=== PATIENT | female | born 1945 | race Caucasian/White ===

== ENCOUNTER 2016-04-29 21:39 | Emergency (ER) | payer OTHER, MEDICARE ==
[~2016-04-29 21:39] MED LIST: LEVSIN-SL0.125 MG SL; MACROBID100 MG PO; ZOFRAN ODT4 M1 SL
--- NOTE | 2016-04-29 21:46 | ED GENERAL ADULT ---
History of Present Illness General Chief Complaint: Syncope and Near-Syncope Stated Complaint: BIBA SYNCOPE Source: patient, family Exam Limitations: poor historian Vital Signs & Intake/Output Vital Signs & Intake/Output Vital Signs Date Time Temp Pulse Resp B/P Pulse O2 O2 Flow FiO2 Ox Delivery Rate 04/30 0116 98.0 64 18 136/72 99 Room Air 04/29 2258 95 Room Air Room Air 04/29 2153 93.0 60 18 120/61 98 Room Air Allergies Coded Allergies: Quinolones (Mild, RASH 07/31/15) pentazocine (UNKNOWN 07/31/15) codeine (Intermediate, NAUSEA 07/31/15) Reconcile Medications Hyoscyamine Sulfate (Levsin-Sl) 0.125 MG TAB.SUBL 1-2 TAB SL Q4P PRN abd pain NITROFURANTOIN MONOHYD/M-CRYST (Macrobid 100 MG Capsule) 100 MG CAPSULE 1 CAP PO BID UTI Ondansetron (Zofran Odt) 4 MG TAB.RAPDIS 1 TAB SL TID nausea Triage Nurses Notes Reviewed? yes Onset: Abrupt Duration: hour(s): Timing: recent history HPI: 04/29/16 This is a mago 70-year-old female presents to the emergency department for syncope and vomiting. According to the patient's daughter she was in her usual state of health until earlier today when she cut her finger and afterwards she passed out. She was unconscious for about a minute. She says she's done this before; But this time she also vomited multiple times. She denies any significant abdominal pain. Now in the emergency department she is somewhat sleepy but denies headache or other complaints. The onset of the symptoms were abrupt, the duration was just this evening, the severity was significant as her symptoms required her to come to the emergency department for care. She was actually hungry earlier this evening and went to [facility] and had 2 hotdogs. Past History Travel History Traveled to [place] past 21 day No Medical History Any Pertinent Medical History? see below for history EENT: vertigo Cardiovascular: hypertension, hyperlipidemia Surgical History Surgical History: non-contributory Psychosocial History Who do you live with Friend Services at Home None What is your primary language Fijian Family History Hx Contributory? No Review of Systems Review of Systems Constitutional: Denies: fever. EENTM: Denies: visual changes. Respiratory: Denies: short of breath. Cardiovascular: Denies: chest pain. GI: Reports: vomiting. Denies: abdominal pain. Genitourinary: Reports: no symptoms. Musculoskeletal: Reports: no symptoms. Skin: Denies: rash. Neurological/Psychological: Denies: headache. Hematologic/Endocrine: Reports: no symptoms. Immunologic/Allergic: Reports: no symptoms. Physical Exam Physical Exam General Appearance: well developed/nourished, alert, awake, anxious, mild distress Head: atraumatic, normal appearance Eyes: Bilateral: normal appearance, PERRL, EOMI. Ears, Nose, Throat: normal pharynx, normal ENT inspection Neck: normal inspection, supple Respiratory: normal breath sounds, chest non-tender Cardiovascular: regular rate/rhythm Peripheral Pulses: 4+ radial (R), 4+ radial (L) Gastrointestinal: soft, non-tender Back: normal range of motion Extremities: normal inspection, normal range of motion Neurologic/Psych: no motor/sensory deficits, awake, alert, oriented x 3 Skin: intact, normal color, warm/dry Core Measures ACS in differential dx? No CVA/TIA Diagnosis: No Severe Sepsis Present: No Septic Shock Present: No Progress Differential Diagnoses I considered the following diagnoses in my evaluation of the patient: [ cardiogenic syncope, dysrhythmia, vertigo TIA, CVA acute intra-abdominal pathology, labyrinthitis, viral syndrome, adverse drug reactions, acute [place], sepsis] Plan of Care: Orders Procedure Date/time Status TROPONIN LEVEL 04/29 2305 Complete LIPASE 04/29 230 Complete COMPREHENSIVE METABOLIC PANEL 04/29 230 Complete CBC WITHOUT DIFFERENTIAL 04/29 2305 Complete AMYLASE 04/29 230 Complete EKG 04/29 2208 Active Laboratory Tests 04/29/16 2313: Anion Gap 10, Estimated GFR > 60, BUN/Creatinine Ratio 35.6 H, Glucose 138 H, Calcium 9.7, Total Bilirubin 0.4, AST 20, ALT 36, Alkaline Phosphatase 98, Troponin I < 0.01, Total Protein 6.6, Albumin 3.9, Globulin 2.7, Albumin/ Globulin Ratio 1.4, Amylase 50, Lipase 123, CBC w Diff NO MAN DIFF REQ, RBC 3.73 L, MCV 85.2, MCH 28.7, RDW 14.0, MPV 7.6, Gran % 76.4 H, Lymphocytes % 14.1 L , Monocytes % 8.6, Eosinophils % 0.6, Basophils % 0.3, Absolute Granulocytes 11.8 H, Absolute Lymphocytes 2.2, Absolute Monocytes 1.3 H, Absolute Eosinophils 0.1, Absolute Basophils 0.1, PUBS MCHC 33.7 Initial ED EKG: NSR Prior EKG: unchanged Departure Departure Disposition: HOME OR SELF CARE Condition: Stable Clinical Impression Primary Impression: Syncope Secondary Impressions: Vertigo Referrals: DEBORAH JO,BRITTA Prieto (PCP/Family) Departure Forms: Customer Survey General Discharge Information Comments 04/30/16 1 AM The patient has been completely asymptomatic in the emergency department. The daughter says she does have a prior history of vertigo and syncope in the past. Her EKG reveals normal sinus rhythm and is unchanged from the old. she did have significant leukocytosis but had been vomiting, there is no history of fever. CAT scan of the abdomen and pelvis is unremarkable. She says she ate [place] and then developed dizziness, she was on conscious for a few seconds and then woke up and vomited. [place] syncope rule is negative. She will follow-up with her doctor on Sunday. upon reevaluation she is again awake alert and oriented 3. cranial nerves II through XII are grossly intact. 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 no abdominal pain or tenderness. no chest pain. She wasd was instructed to follow-up with Dr. Sheehan on Sunday. Critical Care Note Critical Care Note Critical Care Time: non-applicable
[2016-04-29 23:19] LABS: ABSOLUTE BASOPHIL COUNT 0.1 /CUMM (0.0-0.2); ABSOLUTE EOSINOPHIL COUNT 0.1 /CUMM (0.0-0.7); ABSOLUTE GRANULOCYTE CT 11.8 /CUMM (1.4-6.5); ABSOLUTE LYMPH COUNT 2.2 /CUMM (1.2-3.4); ABSOLUTE MONOCYTE COUNT 1.3 /CUMM (0.10-0.60); BASOPHIL % 0.3 % (0.0-2.0); EOSINOPHIL % 0.6 % (0-5); GRANULOCYTE % 76.4 % (42.2-75.2); HEMATOCRIT 31.8 % (37-47); MEAN CORPUSCULAR HGB 28.7 PG (27.0-31.0); MEAN CORPUSCULAR HGB CONC 33.7 G/DL (33.0-37.0); MEAN CORPUSCULAR VOLUME 85.2 FL (81.0-99.0); MEAN PLATELET VOLUME 7.6 FL (7.4-10.4); PLATELET COUNT 345 /CUMM (130-400); RED BLOOD CELL CT 3.73 /CUMM (4.20-5.40); WHITE BLOOD CELL COUNT 15.5 /CUMM (4.8-10.8)
--- NOTE | 2016-04-30 00:06 | CT SCAN REPORT ---
EXAMINATION: CT HEAD WITHOUT CONTRAST CLINICAL INFORMATION: Syncope. COMPARISON: None TECHNIQUE: Contiguous axial imaging was performed from the skull base to vertex without intravenous administration of contrast. DLP: 600.71 mGy-cm FINDINGS: There is no evidence of acute intracranial hemorrhage or territorial infarction. No abnormal mass effect or midline shift is seen. [place] to white matter differentiation is well preserved. No extra-axial fluid collections are identified. There is atrophy with prominence of the ventricles and the sulci and hypodensity of the periventricular white matter due to chronic small vessel ischemic disease. There is vascular calcifications of the internal carotid arteries and the vertebral arteries bilaterally. The osseous structures and soft tissues are normal. The mastoid air cells and visualized portions of the paranasal sinuses are well aerated. IMPRESSION: No acute intracranial pathology.
--- NOTE | 2016-04-30 00:07 | RADIOLOGY REPORT ---
EXAMINATION: XR PORTABLE CHEST CLINICAL INFORMATION: Vomiting. Aspiration. COMPARISON: Chest x-ray 12/08/2013 TECHNIQUE: Portable AP portable view of the chest was obtained. 11:49 PM FINDINGS: Asymmetric elevation of right diaphragm compared to left. Lung volume is low. This causes crowding of the bronchovascular markings. No significant increased pulmonary vascularity. No pleural effusion. There is no infiltrate. IMPRESSION: No acute abnormality of chest.
--- NOTE | 2016-04-30 00:14 | CT SCAN REPORT ---
EXAMINATION: CT ABDOMEN AND PELVIS WITHOUT CONTRAST CLINICAL INFORMATION: Vomiting. COMPARISON: CT scan abdomen and pelvis 07/31/2015 TECHNIQUE: Multidetector volumetric imaging was performed from the superior aspect of the liver through the pubic symphysis. Sagittal and coronal reformatted images were obtained on the technologist's workstation. DLP: 895.84 mGy-cm FINDINGS: LUNG BASES: Coarse bronchovascular markings at lung bases. No infiltrate. No pleural effusion. There is a small hiatal hernia. LIVER, GALLBLADDER, AND BILIARY TREE: The liver is normal in size, shape, and attenuation. No focal hepatic lesion or biliary ductal dilatation is present. Status post cholecystectomy. Surgical clips at the gallbladder fossa. No bile duct dilatation PANCREAS: Unremarkable. SPLEEN: Unremarkable. ADRENAL GLANDS: Unremarkable. KIDNEYS AND URETERS: There are parapelvic cortical pedunculated cysts of the left kidney. No renal or ureteral calculus. No hydronephrosis. BLADDER: Unremarkable. GASTROINTESTINAL TRACT: Severe diverticulosis of the sigmoid colon with diverticula throughout the colon. No diverticulitis. No acute change of the bowel. No bowel obstruction. No bowel wall thickening or edema. Moderate volume of stool in the colon. The appendix is not seen. No inflammation of mesentery. Small bowel loops are normal. There is a small hiatal hernia. ABDOMINAL WALL: No significant hernia is appreciated. Surgical clips at the anterior abdominal wall right upper quadrant. LYMPH NODES: Normal. VASCULAR: Atherosclerotic vascular wall calcifications of aorta and iliac vessels without aneurysm. PELVIC VISCERA: Uterus is absent. No adnexal abnormality. OSSEOUS STRUCTURES: Mild multilevel degenerative spondylosis of the spine. IMPRESSION: No acute abnormality CT scan abdomen pelvis. Marked diverticulosis of the colon without diverticulitis.
[2016-04-30 01:16] VITALS: BP 136/72
== END 2016-04-30 01:17 ==
LOC: ERH 21:39
PROVIDERS: Emergency Medicine
DX: R55 Syncope and collapse (principal); R42 Dizziness and giddiness
CPT/HCPCS: 74176; 93005; 93010